=== PATIENT | male | born 2000 | race Caucasian/White ===

== ENCOUNTER 2024-06-17 04:24 | Emergency (ER) | payer SELFPAY ==
[~2024-06-17] VITALS: Ht 182.9 cm; Wt 65.9 kg
[2024-06-17 04:30] VITALS: TEMP 98.4
[2024-06-17 06:34] VITALS: BP 142/94
[2024-06-17 06:56] VITALS: PULSE 100
== END 2024-06-17 06:56 | disposition home or self-care (01) ==
LOC: COL.ER 04:24
DX: S02.2XXA Fracture of nasal bones, initial encounter for closed fracture (principal); M25.521 Pain in right elbow; V43.62XA Car passenger injured in collision with other type car in traffic accident, initial encounter; Y92.410 Unspecified street and highway as the place of occurrence of the external cause